=== PATIENT | male | born 1970 | race Caucasian/White ===

== ENCOUNTER 2018-03-15 12:32 | Emergency (ER) | payer OTHER ==
[~2018-03-15] VITALS: Ht 175.3 cm; Wt 79.1 kg
[2018-03-15] MEDS ORDERED: LIDOCAINE HCL/PF 1% 5 ML VIAL INJ ONE (13:30)
[2018-03-15] MEDS ORDERED: POVIDONE-IODINE 10% 15 ML SOLUTION UD TP ONE (13:30)
[2018-03-15] MEDS ORDERED: BACITRACIN 0.9 GM PACKET OINTMENT TP ONE (13:30)
[2018-03-15 14:44] VITALS: BP 128/65
== END 2018-03-15 14:49 | disposition home or self-care (01) ==
LOC: EMS 12:34
DX: L03.012 Cellulitis of left finger (principal); M79.89 Other specified soft tissue disorders
CPT/HCPCS: 10060; 99283; J3490